=== PATIENT | female | born 1975 | race Caucasian/White ===

== ENCOUNTER 2016-08-31 08:02 | Day surgery (SDC) | payer OTHER ==
[2016-08-27 13:35] VITALS: BMI 27.8
[2016-08-31] MEDS ORDERED: MIDAZOLAM HCL 2 MG/2 ML SINGLE DOSE VIAL ONE (09:17)
--- NOTE | 2016-08-31 09:19 | HP ---
Past Medical History - Primary Care Physician PCP:: Marvin Sosa - Admission Chief Complaint: 41yo P1 with menometrorrhagia admitted for hysteroscopy, resection of myoma(s), D&C. History of Present Illness: Menometrorrhagia Endometriosis Fibroid uterus Infertility, desires to preserve fertility History Source: Patient, Medical Record Limitations to Obtaining History: No Limitations - Past Medical History TITLE INSPECTOR: No: Alzheimer's, CVA, Dementia, Migraine, Multiple Sclerosis, Peripheral Neuropathy, Parkinson's, Seizure, Syncope, TIA, Vertigo, Other Cardiovascular: No: AFIB, Aneurysm, Aortic Insufficiency, Aortic Stenosis, CAD, CHF, Deep Vein Thrombosis, HTN, Hyperlipdemia, [place], Mitral Insufficiency, Mitral Stenosis, Murmur, Pulmonary Hypertension, Other Pulmonary: No: Asthma, Bronchitis, Cancer, COPD, O2 Dependent, Pneumonia, Previously Intubated, Pulmonary Embolus, Pulmonary Fibrosis, Sleep Apnea, Other Gastrointestinal: Yes: Crohn's Disease Hepatobiliary: No: Cirrhosis, Cholelithiasis, Cholecystitis, Choledocholithiasis , Hepatitis A, Hepatitis B, Hepatitis C, Other Renal/: No: Renal Failure, Renal Inusuff, BPH, Cancer, Hematuria, Hemodialysis , Neurogenic Bladder, Renal Calculi, UTI, Other Reproductive: Yes: Endometriosis, Fibroids ...: 2 ...Para: 1 ...Spon : 1 Heme/Onc: Yes: Anemia Infectious Disease: No: AIDS, C-Diff, Herpes Zoster, HIV, MRSA, STD's, Tuberculosis, VREF, Other Psych: No: Addictions, Anxiety, Bipolar, Depression, Panic, Psychosis, Schizophrenia, Other Musculoskeletal: No: Bursitis, Chronic low back pain, Hemiparesis, Hemiplegia, Osteoarthritis, Paraplegia, Other Rheumatology: Yes: Rheumatoid Arthritis ENT: No: Allergic Rhinitis, Sinusitis, Other Endocrine: No: Min's Disease, Parisa's Disease, Diabetes Insipidus, Diabetes Mellitus, Hyperparathyroidism, Hyperthyroidism, Hypothyroidism, Osteopenia, SIADH, Other - Past Surgical History Past Surgical History: Yes: Cholecystectomy Hx Myomectomy: No Hx Transabdominal Cerclage: No Additional Surgical History: Laparoscopy - Smoking History Smoking history: Never smoked - Alcohol/Substance Use Hx Alcohol Use: No History of Substance Use: reports: None - Social History Usual Living Arrangement: Yes: With Spouse, With Child ADL: Independent History of Recent Travel: No Home Medications - Allergies Allergies/Adverse Reactions: Allergies Allergy/AdvReac Type Severity Reaction Status Date / Time No Known Allergies Allergy Verified 08/31/16 08:45 - Home Medications Home Medications: Ambulatory Orders NK [No Known Home Medication] 08/27/16 Family Disease History - Family Disease History Family Disease History: Other: Mother (Colitis) Other Family History: Aunt: breast ca Review of Systems - Review of Systems Constitutional: reports: No Symptoms Eyes: reports: No Symptoms HENT: reports: No Symptoms Neck: reports: No Symptoms Cardiovascular: reports: No Symptoms Respiratory: reports: No Symptoms Gastrointestinal: reports: No Symptoms Genitourinary: reports: Pain (Pelvic pain) Breasts: reports: No Symptoms Reported Musculoskeletal: reports: No Symptoms Integumentary: reports: No Symptoms Neurological: reports: No Symptoms Endocrine: reports: No Symptoms Hematology/Lymphatic: reports: No Symptoms Psychiatric: reports: No Symptoms Pain Intensity: 3 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: Vital Signs Temperature Pulse Rate 64 08/31/16 08:44 Respiratory Rate 20 08/31/16 08:44 Blood Pressure 114/67 08/31/16 08:44 O2 Sat by Pulse Oximetry (%) 98 08/31/16 08:39 Constitutional: Yes: Well Nourished, No Distress, Calm Eyes: Yes: WNL, Conjunctiva Clear, EOM Intact HENT: Yes: WNL, Atraumatic, Normocephalic Neck: Yes: WNL, Supple, Trachea Midline Cardiovascular: Yes: WNL, Regular Rate and Rhythm Respiratory: Yes: WNL, Regular, CTA Bilaterally Gastrointestinal: Yes: WNL, Normal Bowel Sounds, Soft ...Rectal Exam: Yes: WNL Renal/: Yes: WNL Pelvis: Yes: WNL External Genitalia: Yes: Normal Internal Exam Deferred: No Vaginal Exam: Yes: Normal Cervix: Yes: Normal Uterus: Yes: Freely Moveable, Anteverted, Enlarged Adnexa: Normal: Left, Right Musculoskeletal: Yes: WNL Extremities: Yes: WNL Edema: No Integumentary: Yes: WNL Neurological: Yes: WNL, Alert, Oriented ...Motor Strength: WNL Psychiatric: Yes: WNL, Alert, Oriented Imaging - Results Ultrasound: Report Reviewed, Image Reviewed Assessment/Plan 41yo P1 with fibroid uterus, menometrorrhagia, and endometriosis admitted for hysteroscopy, resection of myoma(s), and D&C. We had discussed the risks, benefits, alternatives of surgery at length including but not limited to infection, bleeding, scarring, perforation, amenorrhea, infertility, hysterectomy, etc. The pt verbalized understanding and requested to proceed with surgery. I emphasized that all surgeries have risks and no guarantees can be provided.
[2016-08-31] MEDS ORDERED: PROPOFOL 20 ML ONE (09:37)
[2016-08-31] MEDS ORDERED: ONDANSETRON 4 MG/2 ML VIAL IVPUSH PRN (10:01)
[2016-08-31] MEDS ORDERED: KETOROLAC TROMETHAMINE 30 MG/1 ML VIAL IVPUSH ONE (10:01)
[2016-08-31] MEDS ORDERED: LACTATED RINGERS SOLUTION 1,000 ML IV SCH (10:15)
--- NOTE | 2016-08-31 10:16 | OP ---
Operative Note - Note: Operative Date: 08/31/16 Pre-Operative Diagnosis: Menometrorrhagia, fibroid uterus Operation: Hysteroscopy, D&C, suction curettage Findings: Normal uterine cavity, no submucosal myomas noted. Post-Operative Diagnosis: Same as Pre-op Surgeon: Marvin Sosa Anesthesiologist/POLYSOM TECH: Mamta Heredia Anesthesia: General Specimens Removed: Endom curettings Estimated Blood Loss (mls): 5 Blood Volume Replaced (mls): 0 Fluid Volume Replaced (mls): 400 Operative Report Dictated: Yes
[2016-08-31] MEDS ORDERED: oxyCODONE HCL 5 MG TABLET ONE (10:41)
[2016-08-31] MEDS ORDERED: oxyCODONE HCL 5 MG TABLET PO ONE (11:31)
[2016-08-31 13:03] VITALS: BP 106/70; PULSE 54; TEMP 97.8
--- NOTE | 2016-09-01 07:46 | OP ---
DATE OF OPERATION: 08/31/2016 PREOPERATIVE DIAGNOSES: 1. Menometrorrhagia. 2. Fibroid uterus. POSTOPERATIVE DIAGNOSES: 1. Menometrorrhagia. 2. Fibroid uterus. 3. Normal endometrial cavity. Both fallopian tubes and ostia are visualized and appear to be within normal limits. No endometrial lesions. No submucosal fibroids were noted. PROCEDURE: Hysteroscopy, dilation and curettage, suction curettage. COMPLICATIONS: None. SURGEON: Marvin Sosa MD ANESTHESIOLOGIST: Mamta Heredia MD ANESTHESIA: General. PATHOLOGY: Endometrial curettings. ESTIMATED BLOOD LOSS: 5 mL. IV FLUIDS: 400 mL crystalloids. FINDINGS: Examination under anesthesia revealed a small, anteverted uterus with no pelvic or adnexal masses. Hysteroscopy revealed a normal endometrial cavity with no submucosal fibroids or endometrial lesions. Both fallopian tubes were visualized and appeared to be within normal limits. DESCRIPTION OF PROCEDURE: The patient was met preoperatively. Risks, benefits, and alternatives of surgery were discussed in detail. All questions were answered. The patient was brought to the OR with the IV running. She was placed on the surgical table in the supine position. General anesthesia was achieved without difficulty. The patient was then placed in a dorsal lithotomy position using adjustable Garcia stirrups. The patient was examined under anesthesia with the findings as described above. A pelvic transabdominal ultrasound was performed with the findings as described above. The patient was then prepped and draped in the usual sterile fashion. A weighted speculum was introduced inside the vagina with good visualization of the cervix. The cervix was dilated to accommodate a size 17 Thomas dilator. A diagnostic hysteroscope was then introduced into the uterine cavity with the findings as described above. Since there were no submucosal fibroids or lesions noted, the hysteroscope was removed from the uterus. A uterine curettage was performed. The tissue was submitted to Pathology for evaluation. A suction curettage was also performed at the end of the procedure to remove all of the clots and debris. Good hemostasis was noted at the end of the procedure. Sponge, lap, and instrument count were correct. The patient was transferred to recovery room in stable condition and awake. Hayde COLINDRES/[id number]
--- NOTE | 2016-09-03 08:53 | PATH ---
Surgical Pathology Report Patient Name: ALLYSON ERICKSON [facility]. Rec. #: [id number] /Age/Gender: 1975 (Age: 41) / F Account: [id number] Location: [facility] SURGICAL Taken: 08/31/2016 Received: 08/31/2016 Reported: 09/03/2016 Physicians: Marvin Sosa M.D. Specimen(s) Received ENDOMETRIAL CURETTINGS Clinical History Submucous leiomyoma of uterus, menorrhagia Final Diagnosis ENDOMETRIUM, CURETTAGE: FRAGMENTS OF PROLIFERATIVE ENDOMETRIUM WITH FOCAL EVIDENCE OF CHRONIC ENDOMETRITIS (SEE COMMENT). FRAGMENTS OF BENIGN ENDOCERVICAL TISSUE. Comment: Immunohistochemical stain for CD138 performed at [place], [place] ([id number]) and interpreted at [facility] highlights scattered plasma cells supporting the presence of chronic endometritis. Electronically Signed Nathan Underwood M.D. Gross Description Received in formalin labeled "endometrial curettings" is a 3.0 x 2.8 x 0.4 cm aggregate of pedroza red soft tissue fragments. The formalin is filtered and the specimen is entirely submitted in 2 cassettes. DL/08/31/2016 saudi/08/31/2016
== END 2016-08-31 13:09 | disposition home or self-care (01) ==
LOC: JASU-SURG 08:02 → MERGE 09:00 → JASU-SURG 13:09
PROVIDERS: ATTEND Obstetrics & Gynecology
PROC: 0UDB8ZX Extraction of Endometrium, Via Natural or Artificial Opening Endoscopic, Diagnostic (ICD-10-PCS; principal; 2016-08-31 09:00)
DX: N92.0 Excessive and frequent menstruation with regular cycle (principal); D25.9 Leiomyoma of uterus, unspecified
CPT/HCPCS: 86850; 86900; 86901; 88305-TC; 94760